=== PATIENT | female | born 1995 ===

== ENCOUNTER 2020-08-08 12:13 | Observation (INO) ==
[~2020-08-08 12:13] MED LIST: Dinoprostone 10 MG VAG.SUPP VAGINAL ONE; Vancomycin 1,000 MG in NS 0.9% 250 ml 250 ML IVPB SCH
[2020-08-08] MEDS ORDERED: ceFAZolin 1 GM ADVAN 1 GM in NS 0.9% 50 ML 50 ML IVPB SCH (13:00)
[2020-08-08 15:47] LABS: Urine Benzodiazepine Screen None Detected (None Detect); Urine Cannabinoids Screen None Detected (None Detect); Urine Opiates Screen None Detected (None Detect)
== END 2020-08-09 10:39 | disposition home or self-care (01) | DRG 951 ==
LOC: MCHOBOUT 12:13 → INTOOBSV 12:37 → MCHOB 12:37
PROVIDERS: ADMIT Midwife; ATTEND Midwife

== ENCOUNTER 2020-08-10 10:04 | Inpatient (IN) ==
[2020-08-10] MEDS ORDERED: Buffered Lidocaine 1% SYRIN 1 ml INTRADERM ONE (11:03)
[2020-08-10] MEDS ORDERED: Lactated Ringers 1000 ml BAG 1,000 ML IV ONE (11:03)
[2020-08-10] MEDS ORDERED: Clindamycin 900 MG/D5W BAG 900 MG/50 ML BAG IVPB SCH (12:00)
[2020-08-10] MEDS: Lactated Ringers 1000 ml BAG 1,000 ML IV SCH ×2 (13:59→21:04)
[2020-08-10] MEDS: Oxytocin in LR 20 UNITS/1,000 ML BAG IVPB SCH (13:59)
[2020-08-10 14:02] LABS: ABS Lymphocytes 1.3 10^3/ul (1.0-4.8); ABS Monocytes 0.6 10^3/ul (0-0.8); ABS Neutrophils 8.5 10^3/ul (1.5-7.7); Eosinophil % 0.1 %; Hematocrit 38 % (35-47); Hemoglobin 12.7 g/dL (12.0-16.0); Lymphocyte % 12.8 %; Mean Corpuscular HGB Conc 33 g/dL (31-36); Mean Corpuscular Hemoglobin 30 pg (27-31); Mean Corpuscular Volume 89 fL (80-97); Mean Platelet Volume 9.3 fL (7.4-10.4); Platelet Count 211 10^3/uL (150-450); Red Blood Count 4.25 10^6 /uL (3.70-4.87); Red Cell Distribution Width 14 % (10-15); White Blood Count 10.5 10^3/uL (3.5-10.8)
[2020-08-10 14:20] LABS: Urine Benzodiazepine Screen None Detected (None Detect); Urine Cannabinoids Screen None Detected (None Detect); Urine Opiates Screen None Detected (None Detect)
[2020-08-10] MEDS: Clindamycin 900 MG/D5W BAG 900 MG/50 ML BAG IVPB SCH (15:58)
[2020-08-10] MEDS ORDERED: Promethazine INJ(RESTRICTED) 25 MG/ML 1 ml VIAL IV ONE (20:19)
[2020-08-10] MEDS ORDERED: Morphine 10 MG/ML VIAL (1 ml) IV ONE (20:19)
[2020-08-10] MEDS ORDERED: Morphine 10 MG/ML VIAL (1 ml) ONE (20:29)
[2020-08-10] MEDS ORDERED: Promethazine INJ(RESTRICTED) 25 MG/ML 1 ml VIAL ONE (20:29)
[2020-08-10] MEDS ORDERED: OBEPIDURAL 250 ML EPIDURAL ONE (23:38)
[2020-08-10] MEDS ORDERED: fentaNYL 100 mcg/2 ml 50 MCG/ML VIAL ONE (23:38)
[2020-08-11] MEDS: Clindamycin 900 MG/D5W BAG 900 MG/50 ML BAG IVPB SCH ×2 (00:15→07:55)
[2020-08-11] MEDS ORDERED: Lactated Ringers 1000 ml BAG 1,000 ML IV ONE (00:29)
[2020-08-11] MEDS ORDERED: Phenylephrine 40 mcg/mL 10mL (400mcg) SYRINGE IV PUSH PRN ×2 (00:29)
[2020-08-11] MEDS ORDERED: EPHEDrine (Pressors) 50 MG/ML VIAL IV PUSH PRN ×2 (00:29)
[2020-08-11] MEDS ORDERED: Sodium Citrate/Citric Acid LIQ 15 ML UDC PO PRN (00:29)
[2020-08-11] MEDS: Lactated Ringers 1000 ml BAG 1,000 ML IV SCH ×3 (01:46→21:01)
[2020-08-11] MEDS: Gentamicin ADULT 350 MG in NS 0.9% 100 ml BAG 100 ML IVPB SCH (11:51)
[2020-08-11] MEDS: Oxytocin in LR 20 UNITS/1,000 ML BAG IVPB SCH (17:14)
[2020-08-11] MEDS ORDERED: ceFOXitin 2 GM IVPREMIX 2 GM/50 ML BAG IVPB ONE (23:23)
[2020-08-11] MEDS ORDERED: fentaNYL 100 mcg/2 ml 50 MCG/ML VIAL ONE (23:43)
[2020-08-11] MEDS ORDERED: Morphine PF AMP (0.5MG/ML) 5 MG/10 ML AMP ONE (23:43)
[2020-08-11] MEDS ORDERED: Ondansetron 4 mg VIAL 2 MG/ML 2 ml VIAL ONE (23:50)
[2020-08-12] MEDS ORDERED: Phenylephrine 40 mcg/mL 10mL (400mcg) SYRINGE ONE ×2 (00:04→00:15)
[2020-08-12] MEDS ORDERED: Oxytocin 10 UNITS/ML 1 ML VIAL ONE ×3 (00:14→01:03)
[2020-08-12] MEDS ORDERED: Naloxone 0.4 mg VIAL 0.4 mg/ml 1 ml VIAL IV PRN ×2 (00:31→00:33)
[2020-08-12] MEDS ORDERED: Metoclopramide 5 MG/ML VIAL (10 mg) IV PRN (00:31)
[2020-08-12] MEDS ORDERED: fentaNYL 100 mcg/2 ml 50 MCG/ML VIAL IV PRN (00:31)
[2020-08-12] MEDS ORDERED: Ondansetron 4 mg VIAL 2 MG/ML 2 ml VIAL IV PRN (00:33)
[2020-08-12] MEDS ORDERED: oxyCODONE/Acetamin 5/325 mg TAB PO PRN (00:33)
[2020-08-12] MEDS ORDERED: Naloxone 4 mg VIAL (10 ml) 2 MG in NS 0.9% 250 ml 250 ML IV PRN (00:33)
[2020-08-12] MEDS ORDERED: Acetaminophen IV 1 GM/100ML 1,000 MG/100 ML VIAL IVPB ONE (00:35)
[2020-08-12 00:36] LABS: Urine Appearance Cloudy; Urine Bilirubin Negative (Negative); Urine Blood Negative (Negative); Urine Color Yellow; Urine Glucose Negative (Negative); Urine Ketones 2+ (Negative); Urine Nitrite Negative (Negative); Urine Protein 1+(30 mg/dL) (Negative); Urine Specific Gravity 1.016 (1.002-1.030); Urine Urobilinogen Negative (Negative)
[2020-08-12 00:48] LABS: Urine Bacteria Absent (Absent); Urine Red Blood Cell 1+(3-5/hpf) (Absent); Urine Renal Epithelial Cells Present (Absent); Urine Squamous Epithelial Cell Present (Absent); Urine White Blood Cell Trace(0-5/hpf) (Absent)
[2020-08-12] MEDS ORDERED: Labetalol IV 5 MG/ML 20 ml VIAL ONE (00:52)
[2020-08-12] MEDS ORDERED: Glycerin ADULT 2.4 gm SUPP PR PRN (01:49)
[2020-08-12] MEDS ORDERED: Dibucaine 1% OINT 28.35 GM TUBE PR PRN (01:49)
[2020-08-12] MEDS ORDERED: RHO D Immune Globulin (HUMAN) 300 MCG = 1,500 I.U. INJ IM PRN (01:49)
[2020-08-12] MEDS ORDERED: Witch Hazel PAD JAR TOPICAL PRN (01:49)
[2020-08-12] MEDS: Clindamycin 900 MG/D5W BAG 900 MG/50 ML BAG IVPB SCH ×4 (01:56→23:19)
[2020-08-12] MEDS ORDERED: Oxytocin in LR 20 UNITS/1,000 ML BAG IVPB SCH (02:00)
[2020-08-12] MEDS ORDERED: Lactated Ringers 1000 ml BAG 1,000 ML IV SCH (02:00)
[2020-08-12] MEDS: Gentamicin ADULT 350 MG in NS 0.9% 100 ml BAG 100 ML IVPB SCH (12:58)
[2020-08-12] MEDS: OBEPIDURAL 250 ML EPIDURAL SCH (23:20)
[2020-08-13] MEDS: Clindamycin 900 MG/D5W BAG 900 MG/50 ML BAG IVPB SCH (01:49)
[2020-08-13 09:54] LABS: ABS Eosinophils 0.1 10^3/ul (0-0.6); ABS Lymphocytes 1.1 10^3/ul (1.0-4.8); ABS Monocytes 0.8 10^3/ul (0-0.8); ABS Neutrophils 10.7 10^3/ul (1.5-7.7); Eosinophil % 0.4 %; Hematocrit 27 % (35-47); Hemoglobin 9.2 g/dL (12.0-16.0); Lymphocyte % 8.5 %; Mean Corpuscular HGB Conc 34 g/dL (31-36); Mean Corpuscular Hemoglobin 30 pg (27-31); Mean Corpuscular Volume 89 fL (80-97); Mean Platelet Volume 8.6 fL (7.4-10.4); Platelet Count 162 10^3/uL (150-450); Red Blood Count 3.07 10^6 /uL (3.70-4.87); Red Cell Distribution Width 15 % (10-15); White Blood Count 12.6 10^3/uL (3.5-10.8)
[2020-08-14 07:54] VITALS: BP 114/60
== END 2020-08-14 10:00 | disposition home or self-care (01) ==
LOC: MCHOBOUT 10:04 → MCHOB 10:51
PROVIDERS: ADMIT Midwife; ATTEND Obstetrics & Gynecology